=== PATIENT | female | born 1955 ===

== ENCOUNTER 2018-11-01 17:18 | Emergency (ER) | payer SELFPAY ==
[2018-11-01 18:49] VITALS: PULSE 64; TEMP 97.4
[2018-11-01 20:22] LABS: SQUAMOUS EPITHIAL 1 /hpf (0-5); URINE AMORPHOUS SEDIMENT RARE /ul (<OCC); URINE BACTERIA RARE (<OCC); URINE BILIRUBIN NEGATIVE (NEGATIVE); URINE BLOOD NEGATIVE (NEGATIVE); URINE CLARITY CLOUDY (Clear); URINE COLOR YELLOW (YELLOW); URINE GLUCOSE (UA) NEG (NEGATIVE); URINE LEUKOCYTE ESTERASE NEG Leu/uL (Negative); URINE PROTEIN 30 mg/dL (NEGATIVE); URINE UROBILINOGEN 0.2-1.0 mg/dL (0.2-1.0)
--- NOTE | 2018-11-01 20:30 | ED PDOC ---
HPI: Female Pain Time Seen by Provider: 11/01/18 18:56 Chief Complaint (Nursing): Female Genitourinary Chief Complaint (Provider): Female Genitourinary History Per: Patient History/Exam Limitations: no limitations Onset/Duration Of Symptoms: Days (x30), Worse Since (x4) Current Symptoms Are (Timing): Still Present Additional Complaint(s): Patient is a 63 y/o female with no significant PMHx who presents to the ED for evaluation of a vaginal mass. For the past month, the patient has felt heaviness in her pelvic region. Four days ago, the patient reports to have the feeling that the mass was coming out of the vagina and increasing in size. Today, patient states to have experienced vaginal bleeding, thus, prompting her visit. Patient claims to be able to urinate and have normal bowel movements. Patient reports to have taken Tylenol for pain. PCP: None Provided. Past Medical History Reviewed: Historical Data, Nursing Documentation, Vital Signs Vital Signs: Last Vital Signs Temp 97.4 F L 11/01/18 18:43 Pulse 64 11/01/18 18:43 Resp 20 11/01/18 18:43 BP 164/71 H 11/01/18 18:43 Pulse Ox 98 11/01/18 18:43 - Medical History PMH: No Chronic Diseases - Surgical History Other surgeries: Hysterectomy - Family History Family History: States: No Known Family Hx - Social History Current smoker - smoking cessation education provided: No Alcohol: None Drugs: Denies - Home Medications Home Medications: Ambulatory Orders Medication Instructions Recorded Ibuprofen [Motrin Tab] 600 mg PO Q8 PRN #60 tab 11/01/18 Nitrofurantoin Macrocrystals 1 cap PO BID #14 cap 11/01/18 [Macrobid] - Allergies Allergies/Adverse Reactions: Allergies Allergy/AdvReac Type Severity Reaction Status Date / Time No Known Allergies Allergy Verified 11/01/18 18:42 Review of Systems ROS Statement: Except As Marked, All Systems Reviewed And Found Negative (as per HPI) Genitourinary Female: Positive for: Vaginal Bleeding, Pelvic Pain (Heaviness) Physical Exam - Reviewed Nursing Documentation Reviewed: Yes Vital Signs Reviewed: Yes - Physical Exam Appears: Positive for: In Acute Distress (Mild Painful) Head Exam: Positive for: ATRAUMATIC, NORMAL INSPECTION, NORMOCEPHALIC Gastrointestinal/Abdominal: Positive for: Tenderness (Suprapubic; to Palpation), Other (Protuberant ). Negative for: Mass, Guarding, Rebound Pelvic Exam: Positive for: Mass (Large, soft, pink colored fleshy mass extruding from vulva; About 15 by 12 cm in Size; Nontender; Superficial Abrasion on Right Posterior Area; Unable to Reduce.) - Laboratory Results Lab Results: Urine Color Yellow (YELLOW) 11/01/18 20:04 Urine Clarity Cloudy (Clear) 11/01/18 20:04 Urine pH 7.0 (5.0-8.0) 11/01/18 20:04 Ur Specific [place] 1.018 (1.003-1.030) 11/01/18 20:04 Urine Protein 30 mg/dL (NEGATIVE) 11/01/18 20:04 Urine Glucose (UA) Neg mg/dL (NEGATIVE) 11/01/18 20:04 Urine Ketones Negative mg/dL (NEGATIVE) 11/01/18 20:04 Urine Blood Negative (NEGATIVE) 11/01/18 20:04 Urine Nitrate Negative (NEGATIVE) 11/01/18 20:04 Urine Bilirubin Negative (NEGATIVE) 11/01/18 20:04 Urine Urobilinogen 0.2-1.0 mg/dL (0.2-1.0) 11/01/18 20:04 Ur Leukocyte Esterase Neg Jim/uL (Negative) 11/01/18 20:04 Urine RBC (Auto) 3 /hpf (0-3) 11/01/18 20:04 Urine Microscopic WBC 3 /hpf (0-5) 11/01/18 20:04 Ur Squamous Epith Cells 1 /hpf (0-5) 11/01/18 20:04 Amorphous Sediment Rare /ul (<OCC) H 11/01/18 20:04 Urine Bacteria Rare (<OCC) 11/01/18 20:04 - ECG O2 Sat by Pulse Oximetry: 98 (RA) Pulse Ox Interpretation: Normal Medical Decision Making Medical Decision Making: Time: 2003 Impression: Vaginal Prolapse Plan: Urine Culture UA Time: 2009 Discussed with HADLEY Lozano, who came down to evaluate patient. Stable for discharge with followup. Scribe Attestation: Documented by Garett Mosley, acting as a scribe for Kayli Rhodes MD. Provider Scribe Attestation: All medical record entries made by the Scribe were at my direction and personally dictated by me. I have reviewed the chart and agree that the record accurately reflects my personal performance of the history, physical exam, medical decision making, and the department course for this patient. I have also personally directed, reviewed, and agree with the discharge instructions and disposition. Disposition - Patient ED Disposition Is Patient to be Admitted: No Counseled Patient/Family Regarding: Studies Performed, Diagnosis, Need For Followup - Disposition Condition: STABLE
[2018-11-01 20:54] VITALS: BP 150/87; RESP 18; O2SAT 100
--- NOTE | 2018-11-01 22:36 | CP.PCM.CON ---
History of Present Illness - History of Present Illness History of Present Illness: Pt is a 63 yo presenting with vaginal pain and bleeding. Patient presents with daughter and with the help of the content strategist, explains that a few days ago keanu pain in the vaginal and noticed this "ball". Patient informed daughter and that is what brought them to the emergency room. Patient was last seen by a motorcycle delivery driver 4 years ago, otherwise denies medical problems, had a hysterectomy 30 years ago and 2 previous vaginal deliveries. Patient reports she had a hysterectomy due to "cancer". From what I could determine, could have been due to cervical cancer or pre-cancer. Unsure if it was a total or partial hysterectomy as well. Patient denies any medical problems, surgical history otherwise, no issues with pregnancies or births, has been having some urinary leakage but otherwise only some vaginal pain/feeling of the vaginal "ball". No CP, no SOB, no leaking, no problems with N/V, tolerating PO diet, ambulating normally Past Patient History - Past Social History Alcohol: None Drugs: Denies - PSYCHIATRIC Hx Substance Use: No - SURGICAL HISTORY Hx Surgeries: Yes Hx Hysterectomy: Yes - ANESTHESIA Hx Anesthesia: Yes Hx Anesthesia Reactions: Yes Meds Home Medications: Home Medication List Medication Instructions Recorded Confirmed Type Ibuprofen [Motrin Tab] 600 mg PO Q8 PRN #60 tab 11/01/18 Rx Nitrofurantoin Macrocrystals 1 cap PO BID #14 cap 11/01/18 Rx [Macrobid] Allergies/Adverse Reactions: Allergies Allergy/AdvReac Type Severity Reaction Status Date / Time No Known Allergies Allergy Verified 11/01/18 18:42 Physical Exam - Eye Exam Pupil Exam: NORMAL ACCOMODATION - ENT Exam ENT Exam: Normal Exam - Respiratory Exam Respiratory Exam: Clear to Auscultation Bilateral, NORMAL BREATHING PATTERN - Cardiovascular Exam Cardiovascular Exam: REGULAR RHYTHM - GI/Abdominal Exam GI & Abdominal Exam: Normal Bowel Sounds - Rectal Exam Rectal Exam: NORMAL INSPECTION - Exam Additional comments: patient has complete prostodencia with ulceration noted about 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 noted with slight bleeding, not active, only one ulceration noted - Extremities Exam Extremities exam: Positive for: normal inspection - Neurological Exam Neurological exam: Oriented x3 - Psychiatric Exam Psychiatric exam: Normal Affect - Skin Skin Exam: Normal Color Results - Vital Signs Recent Vital Signs: Last Vital Signs Temp 97.4 F L 11/01/18 18:43 Pulse 64 11/01/18 18:43 Resp 18 11/01/18 20:54 BP 150/87 11/01/18 20:54 Pulse Ox 100 11/01/18 20:54 - Labs Labs: Laboratory Results - last 24 hr 11/01/18 20:04 Urine Color Yellow Urine Clarity Cloudy Urine pH 7.0 Ur Specific [place] 1.018 Urine Protein 30 Urine Glucose (UA) Neg Urine Ketones Negative Urine Blood Negative Urine Nitrate Negative Urine Bilirubin Negative Urine Urobilinogen 0.2-1.0 Ur Leukocyte Esterase Neg Urine RBC (Auto) 3 Urine Microscopic WBC 3 Ur Squamous Epith Cells 1 Amorphous Sediment Rare H Urine Bacteria Rare Assessment & Plan - Assessment and Plan (Free Text) Assessment: A/p 1. 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 Patient reports that she only just noticed this, but based on the degree of prolapse, this has been going on for a long time. Patient reports she had a hysterectomy for "cancer" although patient can not describe what kind of cancer, so can not prescribe estrogen cream for ulceration that is noted 2. Patient needs outpatient managment for best treatment - pessary vs surgery. Patient reports she does not have to reduce bulge to defecate and only has mild urinary leaking. Pessary could reduce the prolapse but create increased urinary leaking. Multiple options for surgery could correct prolapse and urinary issues, however patient has no insurance an this time and needs a complete motorcycle delivery driver/urogynecological workup first as well. 3. Patient encouraged to enroll in [facility] and to come follow up in the clinic for outpatient follow up and further care. All questions answered - Date & Time Date: 11/01/18 Time: 22:36
== END 2018-11-01 20:59 | disposition home or self-care (01) ==
LOC: H.ER 17:18
DX: N81.3 Complete uterovaginal prolapse (principal); N89.9 Noninflammatory disorder of vagina, unspecified